=== PATIENT | male | born 1990 | race Two or more races ===

== ENCOUNTER 2025-06-30 23:05 | Emergency (ER) | payer OTHER ==
[~2025-06-30] VITALS: Ht 162.6 cm; Wt 70.8 kg
[2025-07-01] MEDS ORDERED: BARIUM SULFATE 450 ML ORAL.SUSP PO ONE (01:43)
[2025-07-01 02:07] LABS: BASO % 0.4 % (0.1-1.2); EOS # 0.29 (0.04-0.54); EOS % 3.1 % (0.7-7.0); LYMPH # 2.47 (1.18-3.74); LYMPH % 26.4 % (19.3-53.1); MEAN PLATELET VOLUME 8.90 fl (9.4-12.4); MONO # 0.90 (0.24-0.82); MONO % 9.6 % (4.7-12.5); NEUT # 5.64 (1.56-6.13); NEUT % 60.4 % (34.0-71.1); RED CELL DISTRIBUTION WIDTH 11.4 % (11.6-14.4)
[2025-07-01 02:26] LABS: INR 0.95
[2025-07-01 02:28] LABS: BUN CREA RATIO 8.0 (7.0-25.0); CREATININE SERUM 0.96 mg/dL (0.70-1.30); GLUCOSE FASTING 105.0 mg/dL (65-100); OSMOLALITY SERUM 286.0 MOSM/KG (275-295)
[2025-07-01 02:29] LABS: GFR 89.13
[2025-07-01] MEDS ORDERED: 0.9 % SODIUM CHLORIDE 1,000 ML IV ONE (06:45)
[2025-07-01] MEDS ORDERED: LEVSIN/SL0.125 MG SL (08:09)
== END 2025-07-01 08:36 ==
LOC: ER 23:44
PROVIDERS: General Practice
DX: K40.90 Unilateral inguinal hernia, without obstruction or gangrene, not specified as recurrent (principal); Z88.6 Allergy status to analgesic agent

== ENCOUNTER 2025-08-01 07:00 | Day surgery (SDC) | payer OTHER ==
[2025-07-29 10:01] LABS: BASO % 0.6 % (0.1-1.2); EOS # 0.19 (0.04-0.54); EOS % 2.7 % (0.7-7.0); LYMPH # 1.69 (1.18-3.74); LYMPH % 23.8 % (19.3-53.1); MEAN PLATELET VOLUME 8.80 fl (9.4-12.4); MONO # 0.58 (0.24-0.82); MONO % 8.2 % (4.7-12.5); NEUT # 4.57 (1.56-6.13); NEUT % 64.4 % (34.0-71.1); RED CELL DISTRIBUTION WIDTH 11.6 % (11.6-14.4)
[2025-07-29 10:05] LABS: URINE APPEARANCE Cloudy; URINE BILIRRUBIN Negative (NEGATIVE); URINE BLOOD Negative; URINE COLOR Yellow; URINE GLUCOSE Negative (NEGATIVE); URINE KETONE Negative (NEGATIVE); URINE LEUKOCYTE Negative; URINE NITRATE Negative; URINE PROTEIN Negative (NEGATIVE); URINE UROBILINOGEN 0.2 E.U./dl
[2025-07-29 10:08] LABS: URINE BACTERIA 15.5 uL (0.0-1933); URINE RBC 7.4 uL (0.0-20.8)
[2025-07-29 10:13] LABS: URINE CAST 0.14 uL (0.0-1.40); URINE EPITHELIAL CELLS 0.4 uL (0.0-38.8); URINE WBC 1.6 uL (0.0-23.2)
[2025-07-29 10:28] LABS: INR 1.0
[2025-07-29 11:09] LABS: ALT/SGPT 30.0 U/L (12-78); AST/SGOT 17.0 U/L (15-37); BILIRUBIN TOTAL 0.49 mg/dL (0.3-1.2); BUN CREA RATIO 12.0 (7.0-25.0); CREATININE SERUM 0.89 mg/dL (0.70-1.30); GFR 97.27; GLOBULINA 3.1 G/DL (2.4-3.5); GLUCOSE FASTING 90.0 mg/dL (65-100); OSMOLALITY SERUM 284.0 MOSM/KG (275-295)
[~2025-08-01 07:00] MED LIST: LEVSIN/SL0.125 MG SL
[2025-08-01] MEDS ORDERED: CEFAZOLIN SODIUM 1,000 MG VIAL ONE (07:30)
[2025-08-01] MEDS ORDERED: BUPIVACAINE HCL/MPF 0.5% 30ML VIAL ONE ×2 (07:57→09:54)
[2025-08-01] MEDS ORDERED: SUGAMMADEX SODIUM 200 MG/2 ML VIAL IV ONE (10:47)
[2025-08-01] MEDS ORDERED: TRAMADOL HCL50 MG PO (11:29)
[2025-08-01] MEDS ORDERED: TYLENOL ARTHRI650 MG PO (11:29)
[2025-08-01] MEDS ORDERED: NEURONTIN300 MG PO (11:29)
[2025-08-01] MEDS ORDERED: MIRALAX17 GM PO (11:29)
== END 2025-08-01 14:35 | disposition home or self-care (01) ==
LOC: CIR.AMB 07:00
PROVIDERS: ATTEND Surgery
DX: K40.90 Unilateral inguinal hernia, without obstruction or gangrene, not specified as recurrent (principal); K42.0 Umbilical hernia with obstruction, without gangrene
CPT/HCPCS: 49650; 49592; C1781